=== PATIENT | male | born 1955 | race Caucasian/White ===

== ENCOUNTER → 2017-12-02 | Outpatient (CLI) | payer OTHER ==
--- NOTE | 2017-12-02 12:03 | Diagnostic Imaging Report ---
INDICATION: History of right foot injury. COMPARISON: None. FINDINGS: Three views of the right foot demonstrate no acute fracture or dislocation. There are no focal osseous lesions. There is no soft tissue swelling. Joint spaces are well maintained. No radiopaque foreign bodies are seen. IMPRESSION: No acute fractures or dislocations of the right foot. Dictated by: Dictated on workstation # [id number]
== END ==
LOC: RAD 11:21
PROVIDERS: ATTEND Family Medicine
DX: M79.671 Pain in right foot (principal)
CPT/HCPCS: 73630

== ENCOUNTER → 2019-09-28 | Outpatient (CLI) | payer MEDICARE, OTHER ==
[~2019-09-28] VITALS: Ht 173 cm; Wt 92.0 kg
[~2019-09-28] MED LIST: CATHETER FLUSH 10 ML SYR IV PRN
--- NOTE | 2019-09-29 09:56 | STRESS TEST ---
DATE OF SERVICE: RESTING AND POST EXERCISE TECHNETIUM-99M TETROFOSMIN AND SPECT CT IMAGING ORDERING PHYSICIAN: Dr. Cope. PRIMARY PHYSICIAN: Dr. Babb. CLINICAL DIAGNOSIS: Chest discomfort. Baseline images were carried out after injection of 10.42 mCi of technetium-99m Tetrofosmin. This was followed by exercise on a treadmill. Heart rate response to exercise was normal. Blood pressure response to exercise appeared hypertensive. The patient exhibited right bundle branch block and left anterior fascicular block at baseline and this did not change during the study. The test was stopped on account of fatigue. When the patient had attained target heart rate and had indicated that he would not be able to go for more than another minute, 30.4 mCi of technetium-99m Tetrofosmin were injected and the exercise was continued for another minute. Overall, he tolerated the procedure well. Test was stopped on account of fatigue. He attained 113% of maximum predicted heart rate and 8.3 METS of workload. Review of images at rest and following stress indicates a fixed inferior perfusion defect. Gated images show inferior hypokinesis. Left ventricular ejection fraction is calculated to be 62%. Left ventricular end diastolic volume is 71 mL. TID is absent (0.93). CONCLUSIONS: 1. This study is suggestive of an inferior infarction without ischemia. 2. Inferior hypokinesis. 3. Well preserved global left ventricular systolic function with a calculated ejection fraction of 62%. Job ID: [id number] DocumentID: [id number] Dictated Date: 09/29/2019 08:50:35 Superintendent Transmission Date: 09/29/2019 09:54:26 Dictated By: JOHANA COPE MD, MA, FACP, FACC,
== END ==
LOC: CARD 07:49
PROVIDERS: ATTEND Internal Medicine Cardiovascular Disease
DX: I11.9 Hypertensive heart disease without heart failure (principal); E11.9 Type 2 diabetes mellitus without complications; E78.5 Hyperlipidemia, unspecified; R94.31 Abnormal electrocardiogram [ECG] [EKG]; R07.89 Other chest pain
CPT/HCPCS: 78452; 93017; 93306

== ENCOUNTER 2020-01-04 07:38 | Day surgery (SDC) | payer MEDICARE, OTHER ==
[2020-01-04] VITALS (16 sets, daily range): BP systolic 115–191; BP diastolic 71–96
[~2020-01-04] VITALS: Ht 175 cm; Wt 96.2 kg
[2020-01-04] MEDS ORDERED: HEParin (CATH LAB) 2,000 ML IV ONE (07:42)
[2020-01-04] MEDS ORDERED: LIDOCAINE 1% INJ 20 ML 20 ML VIAL ONE (07:42)
[2020-01-04] MEDS ORDERED: NS IV 1000 ML 1,000 ML ONE (07:42)
--- OUTSIDE RECORDS SUMMARY | 2020-01-04 07:43 | XMS REPORT | Continuity of Care Document ---
Author Organization Unknown Address Unknown Phone Unavailable Allergies Active Description Code Type Severity Reaction Onset Reported/Identified Relationship to Patient Clinical Status Yes NO KNOWN DRUG ALLERGIES UNKNOWN NO KNOWN DRUG ALLERG Yes NO KNOWN DRUG ALLERGIES UNKNOWN UNKNOWN Yes No Known Drug Allergies [id number] Drug Allergy Unknown N/A 09/28/2019 Medications There is no data. Problems Date Dx Coded Attending Type Code Diagnosis Diagnosed By 12/02/2017 ELVER MARTINEZ 401.0 MALIGNANT ESSENTIAL HYPERTENSION 12/02/2017 MARTINEZELVER BHATTI I10 ESSENTIAL (PRIMARY) HYPERTENSION 12/02/2017 ELVER MARTINEZ 244.9 UNSPECIFIED HYPOTHYROIDISM 12/02/2017 ELVER MARTINEZ W 250.00 DIABETES MELLITUS WITHOUT MENTION OF COMPLICATION, TYPE II OR UNSPECIFIED TYPE, NOT STATED UNCONTROLLED 12/02/2017 ELVER MARTINEZ 401.0 MALIGNANT ESSENTIAL HYPERTENSION 12/02/2017 MARTINEZ, ELVER W E03.9 HYPOTHYROIDISM, UNSPECIFIED 12/02/2017 ELVER MARTINEZ W E11.9 TYPE 2 DIABETES MELLITUS WITHOUT COMPLICATIONS 12/02/2017 MARTINEZ, ELVER W I10 ESSENTIAL (PRIMARY) HYPERTENSION 12/02/2017 MARTINEZELVER BHATTI 244.9 UNSPECIFIED HYPOTHYROIDISM 12/02/2017 ELVER MARTINEZ W 250.00 DIABETES MELLITUS WITHOUT MENTION OF COMPLICATION, TYPE II OR UNSPECIFIED TYPE, NOT STATED UNCONTROLLED 12/02/2017 ELVER MARTINEZ 401.0 MALIGNANT ESSENTIAL HYPERTENSION 12/02/2017 ELVER MARTINEZ E03.9 HYPOTHYROIDISM, UNSPECIFIED 12/02/2017 ELVER MARTINEZ E11.9 TYPE 2 DIABETES MELLITUS WITHOUT COMPLICATIONS 12/02/2017 ELVER MARTINEZ I10 ESSENTIAL (PRIMARY) HYPERTENSION 12/02/2017 W 244.9 UNSP ECIFIED HYPOTHYROIDISM 12/02/2017 W 250.00 YOANA BETES MELLITUS WITHOUT MENTION OF COMPLICATION, TYPE II OR UNSPECIFIED TYPE, NOT STATED UNCONTROLLED 12/02/2017 W 401.0 DENI GNANT ESSENTIAL HYPERTENSION 12/02/2017 A 957.9 INJU RY TO NERVES, UNSPECIFIED SITE 12/02/2017 W E03.9 HYPO THYROIDISM, UNSPECIFIED 12/02/2017 W E11.9 TYPE 2 DIABETES MELLITUS WITHOUT COMPLICATIONS 12/02/2017 W I10 ESSENT IAL (PRIMARY) HYPERTENSION 12/02/2017 A T87.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 MARK OF AMPUTATION STUMP, UNSPECIFIED EXTREMITY 12/02/2017 ELVER MARTINEZ W 244.9 UNSPECIFIED HYPOTHYROIDISM 12/02/2017 ELVER MARTINEZ W 250.00 DIABETES MELLITUS WITHOUT MENTION OF COMPLICATION, TYPE II OR UNSPECIFIED TYPE, NOT STATED UNCONTROLLED 12/02/2017 ELVER MARTINEZ W 401.0 MALIGNANT ESSENTIAL HYPERTENSION 12/02/2017 ELVER MARTINEZ E03.9 HYPOTHYROIDISM, UNSPECIFIED 12/02/2017 ELVER MARTINEZ W E11.9 TYPE 2 DIABETES MELLITUS WITHOUT COMPLICATIONS 12/02/2017 ELVER MARTINEZ I10 ESSENTIAL (PRIMARY) HYPERTENSION 12/24/2017 ELVER MARTINEZ MD Ot M79.671 PAIN IN RIGHT FOOT 01/01/2018 A 250.80 YOANA BETES MELLITUS WITH OTHER SPECIFIED MANIFESTATIONS, TYPE II OR UNSPECIFIED TYPE, NOT STATED UNCONTROLLED 01/01/2018 W 272.4 OTHE R AND UNSPECIFIED HYPERLIPIDEMIA 01/01/2018 W 401.0 DENI GNANT ESSENTIAL HYPERTENSION 01/01/2018 A E11.65 TYP E 2 DIABETES MELLITUS WITH HYPERGLYCEMIA 01/01/2018 W E78.5 HYPE RLIPIDEMIA, UNSPECIFIED 01/01/2018 W I10 ESSENT IAL (PRIMARY) HYPERTENSION 03/11/2018 W 244.9 UNSP ECIFIED HYPOTHYROIDISM 03/11/2018 W 250.00 YOANA BETES MELLITUS WITHOUT MENTION OF COMPLICATION, TYPE II OR UNSPECIFIED TYPE, NOT STATED UNCONTROLLED 03/11/2018 W 272.4 OTHE R AND UNSPECIFIED HYPERLIPIDEMIA 03/11/2018 W 401.0 DENI GNANT ESSENTIAL HYPERTENSION 03/11/2018 W E03.9 HYPO THYROIDISM, UNSPECIFIED 03/11/2018 W E11.9 TYPE 2 DIABETES MELLITUS WITHOUT COMPLICATIONS 03/11/2018 W E78.5 HYPE RLIPIDEMIA, UNSPECIFIED 03/11/2018 W I10 ESSENT IAL (PRIMARY) HYPERTENSION 06/05/2018 ELVER MARTINEZ MD Ot M79.671 PAIN IN RIGHT FOOT 06/06/2018 ELVER MARTINEZ MD L Ot M79.671 PAIN IN RIGHT FOOT 08/31/2018 W 682.9 CELL ULITIS AND ABSCESS OF UNSPECIFIED SITES 08/31/2018 W 782.1 RASH AND OTHER NONSPECIFIC SKIN ERUPTION 08/31/2018 W L03.90 VANIA LULITIS, UNSPECIFIED 08/31/2018 W R21 RASH A ND OTHER NONSPECIFIC SKIN ERUPTION 09/16/2018 ELVER MARTINEZ W 250.00 DIABETES MELLITUS WITHOUT MENTION OF COMPLICATION, TYPE II OR UNSPECIFIED TYPE, NOT STATED UNCONTROLLED 09/16/2018 ELVER MARTINEZ W E11.9 TYPE 2 DIABETES MELLITUS WITHOUT COMPLICATIONS 09/16/2018 W 250.00 YOANA BETES MELLITUS WITHOUT MENTION OF COMPLICATION, TYPE II OR UNSPECIFIED TYPE, NOT STATED UNCONTROLLED 09/16/2018 W 272.4 OTHE R AND UNSPECIFIED HYPERLIPIDEMIA 09/16/2018 W 401.0 DENI GNANT ESSENTIAL HYPERTENSION 09/16/2018 W E11.9 TYPE 2 DIABETES MELLITUS WITHOUT COMPLICATIONS 09/16/2018 W E78.5 HYPE RLIPIDEMIA, UNSPECIFIED 09/16/2018 W I10 ESSENT IAL (PRIMARY) HYPERTENSION 09/16/2018 ELVER MARTINEZ W 250.00 DIABETES MELLITUS WITHOUT MENTION OF COMPLICATION, TYPE II OR UNSPECIFIED TYPE, NOT STATED UNCONTROLLED 09/16/2018 ELVER MARTINEZ W E11.9 TYPE 2 DIABETES MELLITUS WITHOUT COMPLICATIONS 03/17/2019 ELVER MARTINEZ W 250.00 DIABETES MELLITUS WITHOUT MENTION OF COMPLICATION, TYPE II OR UNSPECIFIED TYPE, NOT STATED UNCONTROLLED 03/17/2019 ELVER MARTINEZ E11.9 TYPE 2 DIABETES MELLITUS WITHOUT COMPLICATIONS 03/17/2019 ELVER MARTINEZ W 250.00 DIABETES MELLITUS WITHOUT MENTION OF COMPLICATION, TYPE II OR UNSPECIFIED TYPE, NOT STATED UNCONTROLLED 03/17/2019 ELVER MARTINEZ E11.9 TYPE 2 DIABETES MELLITUS WITHOUT COMPLICATIONS 03/17/2019 ELVER MARTINEZ W 250.00 DIABETES MELLITUS WITHOUT MENTION OF COMPLICATION, TYPE II OR UNSPECIFIED TYPE, NOT STATED UNCONTROLLED 03/17/2019 ELVER MARTINEZ W 401.0 MALIGNANT ESSENTIAL HYPERTENSION 03/17/2019 ELVER MARTINEZ W E11.9 TYPE 2 DIABETES MELLITUS WITHOUT COMPLICATIONS 03/17/2019 ELVER MARTINEZ W I10 ESSENTIAL (PRIMARY) HYPERTENSION 03/17/2019 ELVER MARTINEZ W 250.00 DIABETES MELLITUS WITHOUT MENTION OF COMPLICATION, TYPE II OR UNSPECIFIED TYPE, NOT STATED UNCONTROLLED 03/17/2019 ELVER MARTINEZ W 401.0 MALIGNANT ESSENTIAL HYPERTENSION 03/17/2019 ELVER MARTINEZ W E11.9 TYPE 2 DIABETES MELLITUS WITHOUT COMPLICATIONS 03/17/2019 MICHELLE, ELVER W I10 ESSENTIAL (PRIMARY) HYPERTENSION 03/17/2019 KIKI MARTINEZHEL W 250.00 DIABETES MELLITUS WITHOUT MENTION OF COMPLICATION, TYPE II OR UNSPECIFIED TYPE, NOT STATED UNCONTROLLED 03/17/2019 MARTINEZ ELVER W 272.4 OTHER AND UNSPECIFIED HYPERLIPIDEMIA 03/17/2019 ELVER MARTINEZ W 401.0 MALIGNANT ESSENTIAL HYPERTENSION 03/17/2019 ELVER MARTINEZ W E11.9 TYPE 2 DIABETES MELLITUS WITHOUT COMPLICATIONS 03/17/2019 ELVER MARTINEZ W E78.5 HYPERLIPIDEMIA, UNSPECIFIED 03/17/2019 KIKI MARTINEZHEL W I10 ESSENTIAL (PRIMARY) HYPERTENSION 03/17/2019 KIKI MARTINEZHEL W 250.00 DIABETES MELLITUS WITHOUT MENTION OF COMPLICATION, TYPE II OR UNSPECIFIED TYPE, NOT STATED UNCONTROLLED 03/17/2019 MARTINEZ ELVER W 272.4 OTHER AND UNSPECIFIED HYPERLIPIDEMIA 03/17/2019 ELVER MARTINEZ W 401.0 MALIGNANT ESSENTIAL HYPERTENSION 03/17/2019 ELVER MARTINEZ W E11.9 TYPE 2 DIABETES MELLITUS WITHOUT COMPLICATIONS 03/17/2019 ELVER MARTINEZ W E78.5 HYPERLIPIDEMIA, UNSPECIFIED 03/17/2019 KIKI MARTINEZHEL W I10 ESSENTIAL (PRIMARY) HYPERTENSION 03/17/2019 KIKI MARTINEZHEL W 250.00 DIABETES MELLITUS WITHOUT MENTION OF COMPLICATION, TYPE II OR UNSPECIFIED TYPE, NOT STATED UNCONTROLLED 03/17/2019 MARTINEZ ELVER W 272.4 OTHER AND UNSPECIFIED HYPERLIPIDEMIA 03/17/2019 ELVER MARTINEZ W 401.0 MALIGNANT ESSENTIAL HYPERTENSION 03/17/2019 KIKI MARTINEZHEL W 698.2 PRURIGO 03/17/2019 ELVER MARTINEZ W E11.9 TYPE 2 DIABETES MELLITUS WITHOUT COMPLICATIONS 03/17/2019 KIKI MARTINEZHEL W E78.5 HYPERLIPIDEMIA, UNSPECIFIED 03/17/2019 KIKI MARTINEZHEL W I10 ESSENTIAL (PRIMARY) HYPERTENSION 03/17/2019 ELVER MARTINEZ W L28.2 OTHER PRURIGO 03/17/2019 KIKI MARTINEZHEL W 250.00 DIABETES MELLITUS WITHOUT MENTION OF COMPLICATION, TYPE II OR UNSPECIFIED TYPE, NOT STATED UNCONTROLLED 03/17/2019 ELVER MARTINEZ W 272.4 OTHER AND UNSPECIFIED HYPERLIPIDEMIA 03/17/2019 ELVER MARTINEZ W 401.0 MALIGNANT ESSENTIAL HYPERTENSION 03/17/2019 KIKI MARTINEZHEL W 698.2 PRURIGO 03/17/2019 MICHELLE, ELVER W E11.9 TYPE 2 DIABETES MELLITUS WITHOUT COMPLICATIONS 03/17/2019 ELVER MARTINEZ W E78.5 HYPERLIPIDEMIA, UNSPECIFIED 03/17/2019 ELVER MARTINEZ W I10 ESSENTIAL (PRIMARY) HYPERTENSION 03/17/2019 ELVER MARTINEZ W L28.2 OTHER PRURIGO 03/17/2019 KIKI MARTINEZHEL W 250.00 DIABETES MELLITUS WITHOUT MENTION OF COMPLICATION, TYPE II OR UNSPECIFIED TYPE, NOT STATED UNCONTROLLED 03/17/2019 ELVER MARTINEZ W 272.4 OTHER AND UNSPECIFIED HYPERLIPIDEMIA 03/17/2019 ELVER MARTINEZ W 401.0 MALIGNANT ESSENTIAL HYPERTENSION 03/17/2019 ELVER MARTINEZ W 698.2 PRURIGO 03/17/2019 ELVER MARTINEZ W E11.9 TYPE 2 DIABETES MELLITUS WITHOUT COMPLICATIONS 03/17/2019 ELVER MARTINEZ W E78.5 HYPERLIPIDEMIA, UNSPECIFIED 03/17/2019 MARTINEZKIKI BHATTIHEL W I10 ESSENTIAL (PRIMARY) HYPERTENSION 03/17/2019 ELVER MARTINEZ W L28.2 OTHER PRURIGO 04/12/2019 Mariel Mantilla 682.9 CELLULITIS AND ABSCESS OF UNSPECIFIED SITES 04/12/2019 Mariel Mantilla W L03.90 CELLULITIS, UNSPECIFIED 04/12/2019 Mariel Mantilla 682.9 CELLULITIS AND ABSCESS OF UNSPECIFIED SITES 04/12/2019 Mariel Mantilla W L03.90 CELLULITIS, UNSPECIFIED 04/12/2019 Mariel Mantilla W 682.9 CELLULITIS AND ABSCESS OF UNSPECIFIED SITES 04/12/2019 Mariel Mantilla W L03.90 CELLULITIS, UNSPECIFIED 04/12/2019 Mariel Mantilla 682.9 CELLULITIS AND ABSCESS OF UNSPECIFIED SITES 04/12/2019 Mariel Mantilla L03.90 CELLULITIS, UNSPECIFIED 04/28/2019 ELVER MARTINEZ W 682.6 CELLULITIS AND ABSCESS OF LEG, EXCEPT FOOT 04/28/2019 ELVER MARTINEZ W L03.116 CELLULITIS OF LEFT LOWER LIMB 04/28/2019 MARTINEZELVER BHATTI W 682.6 CELLULITIS AND ABSCESS OF LEG, EXCEPT FOOT 04/28/2019 ELVER MARTINEZ W L03.116 CELLULITIS OF LEFT LOWER LIMB 04/28/2019 MARTINEZELVER BHATTI W 682.6 CELLULITIS AND ABSCESS OF LEG, EXCEPT FOOT 04/28/2019 ELVER MARTINEZ W L03.116 CELLULITIS OF LEFT LOWER LIMB 05/16/2019 Edgar Bourne L29.9 PRURITUS, UNSPECIFIED 08/09/2019 Edgar Bourne G47.9 SLEEP DISORDER, UNSPECIFIED 08/09/2019 Edgar Bourne 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 08/09/2019 Edgar Bourne M79.672 PAIN IN LEFT FOOT 08/09/2019 Edgar Bourne Z01.01 ENCOUNTER FOR EXAM OF EYES AND VISION W ABNORMAL FINDINGS 08/09/2019 Edgar Bourne Z01.89 ENCOUNTER FOR OTHER SPECIFIED SPECIAL EXAMINATIONS 09/06/2019 Edgar Bourne E03.9 HYPOTHYROIDISM, UNSPECIFIED 09/06/2019 Edgar Bourne E11.65 TYPE 2 DIABETES MELLITUS WITH HYPERGLYCEMIA 09/06/2019 Edgar Bourne W E11.9 TYPE 2 DIABETES MELLITUS WITHOUT COMPLICATIONS 09/06/2019 Edgar Bourne E78.5 HYPERLIPIDEMIA, UNSPECIFIED 09/06/2019 Edgar Bourne I10 ESSENTIAL (PRIMARY) HYP 09/06/2019 Edgar Bourne L03.116 CELLULITIS OF LEFT LOWER LIMB 09/06/2019 Edgar Bourne L03.90 CELLULITIS, UNSPECIFIED 09/06/2019 Edgar Bourne L28.2 OTHER PRURIGO 09/06/2019 Edgar Bourne R21 RASH AND OTHER NONSPECIFIC SKIN ERUPTION 09/06/2019 Edgar Bourne 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, UNSPECIFIED EXTREMITY 09/28/2019 MICHELLE NICHOLSON, ELVER Forbes Ot M79.671 PAIN IN RIGHT FOOT 09/28/2019 ELVER MARTINEZ MD, Ot M79.671 PAIN IN RIGHT FOOT 09/30/2019 JACE NICHOLSON FACC, ALI FACP CCDS Ot E11.9 TYPE 2 DIABETES MELLITUS WITHOUT COMPLIC 09/30/2019 [facility], ALI FACP CCDS Ot E78.5 HYPERLIPIDEMIA, UNSPECIFIED 09/30/2019 [facility], ALI FACP CCDS Ot I11.9 HYPERTENSIVE HEART DISEASE WITHOUT HEART 09/30/2019 [facility], ALI FACP CCDS Ot R07.89 OTHER CHEST PAIN 09/30/2019 [facility], ALI FACP CCDS Ot R94.31 ABNORMAL ELECTROCARDIOGRAM [ECG] [EKG] 10/04/2019 [facility], ALI FACP CCDS Ot E11.9 TYPE 2 DIABETES MELLITUS WITHOUT COMPLIC 10/04/2019 [facility], ALI FACP CCDS Ot E78.5 HYPERLIPIDEMIA, UNSPECIFIED 10/04/2019 [facility], ALI FACP CCDS Ot I11.9 HYPERTENSIVE HEART DISEASE WITHOUT HEART 10/04/2019 [facility], ALI FACP CCDS Ot R07.89 OTHER CHEST PAIN 10/04/2019 [facility], ALI FACP CCDS Ot R94.31 ABNORMAL ELECTROCARDIOGRAM [ECG] [EKG] 11/18/2019 [facility], ALI FACP CCDS Ot E11.9 TYPE 2 DIABETES MELLITUS WITHOUT COMPLIC 11/18/2019 [facility], ALI FACP CCDS Ot E78.5 HYPERLIPIDEMIA, UNSPECIFIED 11/18/2019 [facility], ALI FACP CCDS Ot I11.9 HYPERTENSIVE HEART DISEASE WITHOUT HEART 11/18/2019 [facility], ALI FACP CCDS Ot R07.89 OTHER CHEST PAIN 11/18/2019 [facility], ALI FACP CCDS Ot R94.31 ABNORMAL ELECTROCARDIOGRAM [ECG] [EKG] Procedures There is no data. Results Test Result Range PSA Yearly Screen - 12/02/17 10:45 PSA TOTAL 3.3 ng/mL 0.0-4.0 Thyroid Stimulating Hormone - 12/02/17 1 0:45 TSH 1.95 mIU/mL 0.32-5.00 Microalbumin - 09/16/18 08:55 Microalb 9.0 mg/L 0.0-20.0 Surgical Pathology - 05/19/19 14:05 Surg Path Sent to [facility] Pathology Cardiac Panel - 09/06/19 18:27 CK 212 U/L 26-174 CK-MB 4.0 ng/ml 0.0-9.2 Myoglobin 92.8 ng/ml 1.6-154.9 Troponin <0.020 ng/mL 0.0-0.4 Thyroid Stimulating Hormone - 12/30/19 0 8:20 TSH 3.09 mIU/mL 0.32-5.00 Encounters ACCT No. Visit Date/Time Discharge Status Pt. Type Provider Facility Loc./Unit Complaint [id number] 12/30/2019 09:52:00 12/30/2019 23:59 :00 DIS Outpatient ELVER MARTINEZ [id number] 12/30/2019 08:41:00 12/30/2019 23:59 :00 DIS Outpatient ELVER MARTINEZ [id number] 10/05/2019 14:37:00 10/05/2019 23:59 :00 DIS Outpatient ELVER MARTINEZ [id number] 09/07/2019 18:06:00 09/07/2019 23:59 :00 DIS Outpatient ELVER MARTINEZ [id number] 09/06/2019 18:12:00 09/06/2019 20:02 :[id number] 10:35:00 09/03/2019 23:59 :00 DIS Outpatient Mariel Mantilla [id number] 08/10/2019 12:35:00 08/10/2019 23:59 :00 DIS Outpatient ELVER MARTINEZ [id number] 05/19/2019 13:50:00 05/19/2019 23:59: 00 DIS Outpatient ELVER MARTINEZ [id number] 05/19/2019 13:15:00 05/19/2019 23:59: 00 DIS Outpatient ELVER MARTINEZ [id number] 05/17/2019 16:21:00 05/17/2019 23:59: 00 DIS Outpatient ELVER MARTINEZ [id number] 05/12/2019 08:11:00 05/12/2019 23:59: 00 DIS Outpatient ZOE PINEDA [id number] 04/28/2019 15:00:00 04/28/2019 23:59: 00 DIS Outpatient ELVER MARTINEZ [id number] 04/12/2019 15:10:00 04/12/2019 23:59: 00 DIS Outpatient Mariel Mantilla [id number] 03/17/2019 17:00:00 03/17/2019 23:59: 00 DIS Outpatient ELVER MARTINEZ [id number] 09/16/2018 11:04:00 09/16/2018 23:59: 00 DIS Outpatient ELVER MARTINEZ [id number] 12/11/2017 17:13:00 12/11/2017 23:59: 00 DIS Outpatient ZOE PINEDA [id number] 12/02/2017 13:35:00 12/02/2017 23:59: 00 DIS Outpatient ELVER MARTINEZ [id number] 09/16/2018 08:30:00 Document Registration [id number] 08/31/2018 13:00:00 Document Registration [id number] 03/11/2018 08:20:00 Document Registration [id number] 01/01/2018 14:30:00 Document Registration [id number] 12/02/2017 10:40:00 Document Registration [id number] 09/28/2019 07:49:00 020 23:59:59 CLS Outpatient JACE NICHOLSON FACC, JOHANA ZULETA CC DS [facility] CARD CHEST DISCOMFORT,HT,ECG ABNORMAL [id number] 12/02/2017 11:21:00 018 23:59:59 CLS Outpatient ELVER MARTINEZ MD [facility] RAD PAIN DORSUM R FOOT [id number] 01/04/2020 07:38:[address] Outpatient JACE NICHOLSON FACC, JOHANA ZULETA CCDS [facility] CATH HTN,HYPERLIPIDEMIA,ANGINA,SOB,FATIGUE,ABN STRESS [id number] 09/16/2018 16:00:00 09/16/2018 23:59: 59 [facility]
[2020-01-04] MEDS ORDERED: NS IV 1000 ML 1,000 ML IV SCH (07:45)
[2020-01-04 08:10] LABS: HEMOGLOBIN 13.6 G/DL (13.3-17.7); MEAN PLATELET VOLUME 10.4 FL (7.4-10.4); RED CELL DISTRIBUTION WIDTH 14.2 % (10.0-14.5); WHITE BLOOD COUNT 8.5 10^3/uL (4.3-11.0)
[2020-01-04] MEDS ORDERED: CETI10TA17 PO (08:11)
[2020-01-04] MEDS ORDERED: SITA100T12 PO (08:11)
[2020-01-04] MEDS ORDERED: GLIM4TAB5 PO (08:11)
[2020-01-04] MEDS ORDERED: ASPI-808 PO (08:11)
[2020-01-04] MEDS ORDERED: LORA-714 PO (08:11)
[2020-01-04] MEDS ORDERED: NFMET1000 PO (08:11)
[2020-01-04] MEDS ORDERED: PRAV20TA PO (08:11)
[2020-01-04] MEDS ORDERED: LISI1TAB26 PO (08:11)
[2020-01-04] MEDS ORDERED: LEVO88TA54 PO (08:11)
[2020-01-04] MEDS ORDERED: AMLO10TA7 PO (08:11)
[2020-01-04 08:28] LABS: INR 0.9 (0.8-1.4); PROTHROMBIN TIME PATIENT 12.3 SEC (12.2-14.7)
[2020-01-04 08:33] LABS: ALANINE AMINOTRANSFERASE 30 U/L (0-55); ALBUMIN 4.7 GM/DL (3.2-4.5); ALKALINE PHOSPHATASE 65 U/L (40-136); BILIRUBIN,TOTAL 1.1 MG/DL (0.1-1.0); BUN/CREATININE RATIO 16; CALCIUM 10.3 MG/DL (8.5-10.1); CARBON DIOXIDE 28 MMOL/L (21-32); CHLORIDE 100 MMOL/L (98-107); CHOLESTEROL 189 MG/DL (< 200); CREATININE SERUM 0.83 MG/DL (0.60-1.30); GFR ESTIMATED > 60; GLUCOSE 156 MG/DL (70-105); HDL CHOLESTEROL 51 MG/DL (40-60); POTASSIUM 3.1 MMOL/L (3.6-5.0); SODIUM 141 MMOL/L (135-145); TOTAL PROTEIN 8.1 GM/DL (6.4-8.2); TRIGLYCERIDES 101 MG/DL (<150); VLDL CHOLESTEROL 20 MG/DL (5-40)
[2020-01-04] MEDS ORDERED: fentaNYL INJECTION 100 MCG/2 ML AMP ONE (10:25)
[2020-01-04] MEDS ORDERED: MIDAZOLAM 5 MG/5 ML (VERSED) VIAL ONE (10:25)
--- NOTE | 2020-01-04 10:49 | Cardiac Procedure Note-CS/ASA ---
Pre-Procedure Note Pre-Op Procedure Note H&P Reviewed The H&P was reviewed, patient examined and no changes noted. Date H&P Reviewed: Jan 04, 2020 Time H&P Reviewed: 10:49 Conscious Sedation Pre-Proced Time 10:49 ASA Score 3 For ASA 3 and 4: Consider anesthesia and medical clearance. Also, for patients with a history of failed moderate sedation consider anesthesia. Airway Lungs Heart ASA score ASA 1: a normal healthy patient ASA 2: a patient with a mild systemic disease (mid diabetes, controlled hypertension, obesity ASA 3: a patient with a severe systemic disease that limits activity (angina, COPD, prior Myocardial infarction) ASA 4: a patient with an incapacitating disease that is a constant threat to life (CHF, renal failure) ASA 5: a moribund patient not expected to survive 24 hrs. (ruptured aneurysm) ASA 6: a declared brain- patient whose organs are being harvested. For emergent operations, add the letter E after the classification Mallampati Classification Grade 3 Sedation Plan Analgesia, Amnesia, Plan communicated to team members, Discussed options with patient/fam, Discussed risks with patient/fam The patient is an appropriate candidate to undergo the planned procedure, sedation, and anesthesia. The patient immediately re-assessed prior to indication. JOHANA MCCORMICK MD FACP FAC CCDS Jan 04, 2020 10:49
[2020-01-04] MEDS ORDERED: HEParin 1000 UNIT/ML (10ML VIAL) FOR BOLUS ONE (11:12)
[2020-01-04] MEDS ORDERED: EPTIFIBATIDE BOLUS 20 ML IV ONE (11:12)
[2020-01-04] MEDS ORDERED: NITRO DRIP 25000 MCG/D5W 0 ML IV ONE (11:19)
[2020-01-04] MEDS ORDERED: ASPIRIN 81 MG CHEW (CHILDREN'S ASA) ONE (11:37)
[2020-01-04] MEDS ORDERED: CLOPIDOGREL 300 MG (PLAVIX) TABLET PO ONE (11:37)
--- NOTE | 2020-01-04 11:45 | NUR ---
Pt arrived to ICU room 7 at this time accompanied by slabber light staff. Right groin site, sheath intact. VSS at this time. Will continue to monitor PTT to remove sheath per protocol.
[2020-01-04] MEDS ORDERED: MAGNESIUM 1 GM/100 ML IVPB 100 ML IV ONE ×2 (12:00→15:45)
[2020-01-04] MEDS ORDERED: KCL 20 MEQ TAB (K-DUR) PO ONE (12:00)
[2020-01-04] MEDS ORDERED: ACETAMINOPHEN 325 MG TABLET PO PRN (12:00)
[2020-01-04] MEDS ORDERED: PATIENT MAY USE OWN MEDS, ALL PO SCH (12:00)
--- NOTE | 2020-01-04 12:14 | CARDIAC CATHETERIZATION ---
DATE OF SERVICE: 01/04/2020 CARDIAC CATHETERIZATION AND CORONARY INTERVENTION REPORT INDICATIONS FOR PROCEDURE: The patient is a 64-year-old man, who has coronary artery disease risk factors and has had chest discomfort. Myocardial perfusion imaging study indicated an inferior perfusion defect. Although the perfusion defect appeared predominantly fixed, given the symptoms, we proceeded with cardiac catheterization after having obtained an informed consent for cardiac catheterization and ad hoc coronary intervention, if needed. DESCRIPTION OF PROCEDURE: He was brought to the cardiac catheterization laboratory in a fasting state. Right groin was prepared and draped in the usual sterile fashion. Lidocaine 1% was used for local anesthesia. Modified Seldinger technique was used to advance a 5-Israeli sheath in the right femoral artery, 5-Israeli JL5 catheter was used for left coronary angiography and 5-Israeli JR4 catheter was used for right coronary angiography. We used a 5-Israeli pigtail catheter to carry out aortic root angiography. Aortic root angiography was performed because his aortic root appeared enlarged and there appeared to be calcification of the aortic valve leaflets. We made an attempt to cross into the left ventricle. This was proven difficult and we did not make further attempts. PERCUTANEOUS INTERVENTION TO THE RIGHT CORONARY ARTERY: Following completion of the diagnostic procedure, we carried out intervention to the right coronary that was exhibiting 70% to 80% proximal stenosis. We exchanged the sheath over a wire for a 6-Israeli sheath. We gave 6000 units of intravenous heparin and double bolus of Integrilin. We used a 6-Israeli JR4 guide catheter to engage the right coronary artery. We advanced a BMW wire across the lesion. We advanced Alpine Xience 3.5 x 20 mm stent to the lesion. Stent was deployed at 14 atmospheres. Subsequent angiography revealed 0% residual stenosis and flow throughout the vessel was normal. He tolerated the procedure well. Angioplasty equipment was removed. Sheath was sutured in place. He was transferred to the floor for manual sheath removal. CORONARY ANGIOGRAPHY: Left main coronary artery does not have significant disease. Left anterior descending and left circumflex arteries have approximately 30% proximal stenoses. Right coronary artery is large and dominant and had 70% to 80% proximal stenosis that was successfully stented with Alpine Xience 3.5 x 23 mm stent. Subsequent angiography revealed 0% residual stenosis. AORTIC ROOT ANGIOGRAPHY: Aortic root angiography indicated mild to moderate enlargement of the aortic root. Aortic valve leaflets show mild to moderate calcification. Aortic valve leaflet is diminished, but fair. CONCLUSIONS: 1. Coronary artery disease primarily consisting of 70% to 80% proximal stenosis of a dominant right coronary, to which successful stenting was carried out with Alpine Xience 3.5 x 23 mm stent. The rest of the coronary vessels have relatively mild disease. 2. Mild to moderate enlargement of the aortic root and aortic valve sclerosis and calcification and somewhat diminished leaflet excursion. DISCUSSION AND RECOMMENDATIONS: Dual antiplatelet therapy is being added to the regimen. He is being hospitalized for overnight observation. Risk factor modification has been reviewed. Job ID: [id number] DocumentID: [id number] Dictated Date: 01/04/2020 11:39:24 Commodities Manager Date: 01/04/2020 12:14:17 Dictated By: JOHANA MCCORMICK MD, MA, FACP, FACC,
[2020-01-04] MEDS: inSUlin ASPART (NovoLOG) 1 UNIT/0.01 ML (CHARGE PER UNIT) SC SCH ×2 (15:16→19:49)
[2020-01-04] MEDS ORDERED: KCL 20 MEQ TAB (K-DUR) PO NR (15:45)
[2020-01-04] MEDS: NS IV 1000 ML 1,000 ML IV SCH ×2 (16:19→22:39)
[2020-01-04] MEDS ORDERED: NON-FORMULARY MEDICATION 1 EA EA (Cetirizine HCl 10 MG) PO SCH (21:00)
[2020-01-04] MEDS ORDERED: PRAVASTATIN SODIUM 20 MG PO SCH (21:00)
[2020-01-04] MEDS ORDERED: PRAVASTATIN 20 MG (PRAVACHOL) TAB NON-FORMULARY PO SCH (21:00)
[2020-01-04] MEDS ORDERED: LORATADINE (CLARITIN) 10 MG TAB PO SCH (21:00)
[2020-01-04] MEDS ORDERED: ceTIRizine 10 MG (ZyrTEC) TAB NON-FORMULARY PO SCH (21:00)
[2020-01-05] VITALS (10 sets, daily range): BP systolic 116–163; BP diastolic 66–113
[2020-01-05 02:55] LABS: HEMOGLOBIN 13.6 G/DL (13.3-17.7); MEAN PLATELET VOLUME 10.7 FL (7.4-10.4); RED CELL DISTRIBUTION WIDTH 14.5 % (10.0-14.5); WHITE BLOOD COUNT 8.6 10^3/uL (4.3-11.0)
[2020-01-05 03:11] LABS: CHLORIDE 105 MMOL/L (98-107); POTASSIUM 3.5 MMOL/L (3.6-5.0); SODIUM 141 MMOL/L (135-145)
[2020-01-05 03:12] LABS: GLUCOSE 141 MG/DL (70-105)
[2020-01-05 03:14] LABS: CARBON DIOXIDE 23 MMOL/L (21-32)
[2020-01-05 03:16] LABS: CREATININE SERUM 0.79 MG/DL (0.60-1.30); GFR ESTIMATED > 60
[2020-01-05 03:17] LABS: BUN/CREATININE RATIO 14
[2020-01-05] MEDS: inSUlin ASPART (NovoLOG) 1 UNIT/0.01 ML (CHARGE PER UNIT) SC SCH ×2 (04:08→10:09)
[2020-01-05] MEDS ORDERED: LEVOTHYROXINE 88 MCG (LEVOTHORID) TAB PO SCH (06:30)
[2020-01-05] MEDS ORDERED: LINAGLIPTIN (TRADJENTA) 5 MG TABLET PO SCH (07:00)
[2020-01-05] MEDS ORDERED: GLIMEPIRIDE 4 MG (AMARYL) TAB PO SCH (07:00)
[2020-01-05] MEDS: NS IV 1000 ML 1,000 ML IV SCH (07:58)
[2020-01-05] MEDS ORDERED: ASPIRIN 325 MG (5 GR) TABLET PO SCH (08:00)
--- NOTE | 2020-01-05 08:10 | Progress Note - Cardiology ---
Cardiology SOAP Progress Note Subjective: Lying in bed. Denies any c/o CP, palpitations, syncope, near syncope or dyspnea. Spouse at the bedside. He denies any c/o right groin discomfort. Objective: I&O/Vital Signs 01/04/20 01/04/20 01/04/20 01/05/20 22:00 23:00 23:59 00:00 Temp 36.5 Pulse 69 59 Resp 17 B/P (MAP) 139/90 (106) 115/71 (86) Pulse Ox 96 94 O2 Delivery Room Air Room Air Room Air 01/05/20 01/05/20 01/05/20 01/05/20 00:00 01:00 01:00 02:00 Pulse 56 61 61 62 Resp 10 20 19 B/P (MAP) 121/66 (84) 133/72 (92) 133/79 (97) Pulse Ox 95 95 94 O2 Delivery Room Air Room Air Room Air 01/05/20 01/05/20 01/05/20 01/05/20 03:15 03:56 04:00 04:00 Temp 36.5 Pulse 65 61 Resp 21 18 B/P (MAP) 141/80 (100) 116/70 (85) Pulse Ox 95 96 O2 Delivery Room Air Room Air Room Air 01/05/20 01/05/20 01/05/20 05:00 06:00 07:20 Temp 36.4 Pulse 63 66 Resp 25 25 B/P (MAP) 144/75 (98) 153/76 (101) Pulse Ox 96 97 O2 Delivery Room Air Room Air 01/05/20 00:00 Intake Total 300 ml Output Total 1150 ml Balance -850 ml Side: right Groin site without hematoma: Yes Condition: DP/PT pulses palpable, extremity w/d/p Bruising: mild bruising Constitutional: AAO x 3 Respiratory: No accessory muscle use, No respiratory distress; chest expansion is symmetric, chest is bilaterally symmetric Cardiovascular: regular rate-rhythm; No JVD; S1 and S2 Gastrointestional: No tender; soft, round, audible bowel sounds Extremities: no lower extremity edema bilateral Neurologic/Psychiatric: grossly intact Skin: No rash on exposed areas, No ulcerations on exposed areas Results/Procedures: Labs Laboratory Tests 01/04/20 12:52: Activated Partial Thromboplast Time 80H 01/04/20 15:09: Activated Partial Thromboplast Time 27 01/04/20 19:39: Glucometer 196H 01/05/20 02:16: White Blood Count 8.6, Red Blood Count 4.58, Hemoglobin 13.6, Hematocrit 41, Mean Corpuscular Volume 89, Mean Corpuscular Hemoglobin 30, Mean Corpuscular Hemoglobin Concent 33, Red Cell Distribution Width 14.5, Platelet Count 256, Mean Platelet Volume 10.7H, Sodium Level 141, Potassium Level 3.5L, Chloride Level 105, Carbon Dioxide Level 23, Anion Gap 13, Blood Urea Nitrogen 11, Creatinine 0.79, Estimat Glomerular Filtration Rate > 60, BUN/Creatinine Ratio 14, Glucose Level 141H, Calcium Level 9.0, Magnesium Level 2.0 Microbiology 01/04/20 MRSA Screen - Final, Complete MRSA not isolated Procedures S/P cardiac cath of 01-04-2020 with successful intervention. Please refer to cardiac cath report of of the same date for details. A/P: Assessment: CAD - Cardiac cath of January 04, 2020: Coronary artery disease primarily consisting of 70% to 80% proximal stenosis of a dominant right coronary, to which successful stenting was carried out with Alpine Xience 3.5 x 23 mm stent. The rest of the coronary vessels have relatively mild disease. Mild to moderate enlargement of the aortic root and aortic valve sclerosis and calcification and somewhat diminished leaflet excursion. MPI of September 28, 2019 is suggestive of an inferior infarction without ischemia. Inferior hypokinesis. LVEF 62% (subsequent cardiac cath as noted above) Echocardiogram of September 28, 2019 showed LVEF 50-55%. Aortic valve thickening consistent with sclerosis. Mild to mod stenosis. RVSP approx 29 mmHg Abnormal ECG. ECG of 09/06/19 shows NSR with RBBB and LAFB Hypertension Hyperlipidemia DM II Overweight Skin rash in Jul 2019, treated transiently with methotrexate Fam h/o premature CAD (brother had [place] in his early 60s; sister had [place] in 20s or 30s) Hypokalemia Plan: S/P successful coronary intervention on 01-04-2020 Continue current medication regimen including statin, ASA, Plavix and BB Discussed coronary status with he and his spouse Discussed activity restrictions with he and his spouse OK to discharge home today with out pt f/u next week GUS MULLER Jan 05, 2020 08:10
[2020-01-05] MEDS ORDERED: LISINOPRIL/HCTZ 20/25 MG TABLET PO SCH (09:00)
[2020-01-05] MEDS ORDERED: CLOPIDOGREL 75 MG (PLAVIX) TABLET PO SCH (09:00)
[2020-01-05] MEDS ORDERED: HYDROCHLOROTHIAZIDE 25 MG (HCTZ) TAB PO SCH (09:00)
[2020-01-05] MEDS ORDERED: NON-FORMULARY MEDICATION 1 EA EA (Sitagliptin Phosphate (Januvia) 100 MG) PO SCH (09:00)
[2020-01-05] MEDS ORDERED: JANUVIA 100 MG PO SCH (09:00)
[2020-01-05] MEDS ORDERED: LORATADINE (CLARITIN) 10 MG TAB PO SCH (09:00)
[2020-01-05] MEDS ORDERED: NON-FORMULARY MEDICATION 1 EA EA (Lisinopril/Hydrochlorothiazide (Lisinopril-Hctz 20-25 mg PO SCH (09:00)
[2020-01-05] MEDS ORDERED: lisINopril 20 MG (PRINIVIL) TABLET PO SCH (09:00)
[2020-01-05] MEDS ORDERED: amLODIPine 10 MG (NORVASC) TAB PO SCH (09:00)
[2020-01-05] MEDS ORDERED: CLOP75TA28 PO (09:27)
--- NOTE | 2020-01-05 09:29 | Discharge Inst-Cardiology ---
Discharge Inst-Cardiac Discharge Medications New Medications: Clopidogrel Bisulfate (Clopidogrel) 75 Mg Tablet 75 MG PO DAILY, #20 TAB 5 Refills Continued Medications: Amlodipine Besylate (Amlodipine Besylate) 10 Mg Tablet 10 MG PO DAILY, TAB Cetirizine HCl (Cetirizine HCl) 10 Mg Tablet 10 MG PO HS, TAB Glimepiride (Glimepiride) 4 Mg Tablet 4 MG PO DAILY, TAB Levothyroxine Sodium (Levothyroxine Sodium) 88 Mcg Tablet 88 MCG PO DAILY, TAB Lisinopril/Hydrochlorothiazide (Lisinopril-Hctz 20-25 mg Tab) 1 Each Tablet 1 EACH PO DAILY, TAB Loratadine (Loratadine) 10 Mg Tab.rapdis 10 MG PO DAILY, TAB Pravastatin Sodium (Pravachol) 20 Mg Tablet 20 MG PO HS, TAB Sitagliptin Phosphate (Januvia) 100 Mg Tablet 100 MG PO DAILY, TAB Discontinued Medications: Aspirin (Aspirin) 325 Mg Tablet 325 MG PO DAILY, TAB Metformin HCl (Glucophage) 1,000 Mg Tab 1000 MG PO BID, TAB New, Converted or Re-Newed RX: Call to Patients Pharmacy Patient Instructions Patient Instructions: DO NOT TAKE METFORMIN TODAY OR TOMORROW. RESTART METFORMIN ON FRIDAY, JANUARY 07, 2020. PLEASE SCHEDULE FOLLOW UP APPOINTMENT NEXT WEEK WITH GUS WARD Jan 05, 2020 09:29
[2020-01-05] MEDS ORDERED: KCL 20 MEQ TAB (K-DUR) PO ONE ×2 (09:33→09:45)
--- NOTE | 2020-01-05 11:20 | NUR ---
PT AND LATASHA EDUCATED ON DISCHARGE INSTRUCTIONS. PT AND STATED UNDERSTANDING. PT TAKEN TO CAR VIA WHEELCHAIR WITH BELONGINGS.
--- NOTE | 2020-01-05 12:49 | Progress Note - Cardiology ---
Cardiology SOAP Progress Note Subjective: No cp or palp or syncope or shortness of breath No groin discomfort No leg discomfort No focal weakness No n/v/d Objective: I&O/Vital Signs 01/05/20 01/05/20 01/05/20 01/05/20 01:00 01:00 02:00 03:15 Pulse 61 61 62 65 Resp 20 19 21 B/P (MAP) 133/72 (92) 133/79 (97) 141/80 (100) Pulse Ox 95 94 95 O2 Delivery Room Air Room Air Room Air 01/05/20 01/05/20 01/05/20 01/05/20 03:56 04:00 04:00 05:00 Temp 36.5 Pulse 61 63 Resp 18 25 B/P (MAP) 116/70 (85) 144/75 (98) Pulse Ox 96 96 O2 Delivery Room Air Room Air Room Air 01/05/20 01/05/20 01/05/20 01/05/20 06:00 06:38 07:00 07:20 Temp 36.4 Pulse 66 63 74 Resp 25 21 B/P (MAP) 153/76 (101) 163/113 (130) Pulse Ox 97 98 O2 Delivery Room Air Room Air 01/05/20 01/05/20 01/05/20 01/05/20 08:00 08:00 09:00 10:00 Pulse 81 75 69 Resp 28 20 32 B/P (MAP) 127/87 (100) Pulse Ox 99 95 O2 Delivery Room Air Room Air Room Air Room Air 01/05/20 11:24 Temp 36.4 Pulse 69 Resp 32 B/P (MAP) 127/87 Pulse Ox 95 O2 Delivery Room Air 01/05/20 00:00 Intake Total 300 ml Output Total 1150 ml Balance -850 ml Side: right Groin site without hematoma: Yes Condition: DP/PT pulses palpable, extremity w/d/p Bruising: mild bruising Constitutional: AAO x 3 Respiratory: No accessory muscle use, No respiratory distress; chest expansion is symmetric, chest is bilaterally symmetric Cardiovascular: regular rate-rhythm; No JVD; S1 and S2 Gastrointestional: No tender; soft, round, audible bowel sounds Extremities: no lower extremity edema bilateral Neurologic/Psychiatric: grossly intact Skin: No rash on exposed areas, No ulcerations on exposed areas Results/Procedures: Labs Laboratory Tests 01/04/20 12:52: Activated Partial Thromboplast Time 80H 01/04/20 15:09: Activated Partial Thromboplast Time 27 01/04/20 19:39: Glucometer 196H 01/05/20 02:16: White Blood Count 8.6, Red Blood Count 4.58, Hemoglobin 13.6, Hematocrit 41, Mean Corpuscular Volume 89, Mean Corpuscular Hemoglobin 30, Mean Corpuscular Hemoglobin Concent 33, Red Cell Distribution Width 14.5, Platelet Count 256, Mean Platelet Volume 10.7H, Sodium Level 141, Potassium Level 3.5L, Chloride Level 105, Carbon Dioxide Level 23, Anion Gap 13, Blood Urea Nitrogen 11, Creatinine 0.79, Estimat Glomerular Filtration Rate > 60, BUN/Creatinine Ratio 14, Glucose Level 141H, Calcium Level 9.0, Magnesium Level 2.0 01/05/20 10:03: Glucometer 226H Microbiology 01/04/20 MRSA Screen - Final, Complete MRSA not isolated Laboratory Tests 01/04/20 08:00 01/05/20 02:16 A/P: Assessment: CAD - Cardiac cath of January 04, 2020: Coronary artery disease primarily consisting of 70% to 80% proximal stenosis of a dominant right coronary, to which successful stenting was carried out with Alpine Xience 3.5 x 23 mm stent. The rest of the coronary vessels have relatively mild disease. Mild to moderate enlargement of the aortic root and aortic valve sclerosis and calcification and somewhat diminished leaflet excursion. MPI of September 28, 2019 is suggestive of an inferior infarction without ischemia. Inferior hypokinesis. LVEF 62% (subsequent cardiac cath as noted above) Echocardiogram of September 28, 2019 showed LVEF 50-55%. Aortic valve thickening consistent with sclerosis. Mild to mod stenosis. RVSP approx 29 mmHg Abnormal ECG. ECG of 09/06/19 shows NSR with RBBB and LAFB Hypertension Hyperlipidemia DM II Overweight Skin rash in Jul 2019, treated transiently with methotrexate Fam h/o premature CAD (brother had MT in his early 60s; sister had [place] in 20s or 30s) Hypokalemia Plan: S/P successful coronary intervention on 01-04-2020 Continue current medication regimen including statin, ASA, Plavix and BB I explained CV findings and interventions undertaken and further treatment plan to him and his , and answered questions Discussed activity restrictions with him and his spouse OK to discharge home today with out pt f/u next week JOHANA MCCORMICK MD FACP FAC CCDS Jan 05, 2020 12:49
== END 2020-01-05 11:24 | disposition home or self-care (01) ==
LOC: CATH 07:38 → ICU 11:46 → CATH 01-05 11:24
PROVIDERS: ATTEND Internal Medicine Cardiovascular Disease
DX: I25.10 Atherosclerotic heart disease of native coronary artery without angina pectoris (principal); I35.8 Other nonrheumatic aortic valve disorders; R07.89 Other chest pain; E66.3 Overweight; E87.6 Hypokalemia; E78.5 Hyperlipidemia, unspecified; E11.9 Type 2 diabetes mellitus without complications; Z79.84 Long term (current) use of oral hypoglycemic drugs; Z79.82 Long term (current) use of aspirin; Z79.899 Other long term (current) drug therapy; Z68.31 Body mass index [BMI] 31.0-31.9, adult; Z90.89 Acquired absence of other organs; Z82.3 Family history of stroke
CPT/HCPCS: 36415; 80048; 80053; 80061; 82962; 83735; 85027; 85347; 85610; 85730; 87081; 93005; 93454; 93567

== ENCOUNTER → 2020-01-10 | Outpatient (CLI) | payer MEDICARE, OTHER ==
[~2020-01-10] MED LIST changes: +AMLO10TA7 PO; +ASPI-808 PO; -CATHETER FLUSH 10 ML SYR IV PRN; +CETI10TA17 PO; +CLOP75TA28 PO; +GLIM4TAB5 PO; +LEVO88TA54 PO; +LISI1TAB26 PO; +LORA-714 PO; +NFMET1000 PO; +PRAV20TA PO; +SITA100T12 PO
[2020-01-10 08:48] LABS: BUN/CREATININE RATIO 20; CALCIUM 9.7 MG/DL (8.5-10.1); CARBON DIOXIDE 28 MMOL/L (21-32); CHLORIDE 96 MMOL/L (98-107); CREATININE SERUM 0.87 MG/DL (0.60-1.30); GFR ESTIMATED > 60; GLUCOSE 118 MG/DL (70-105); POTASSIUM 3.5 MMOL/L (3.6-5.0); SODIUM 137 MMOL/L (135-145)
== END ==
LOC: LAB FS 07:56
PROVIDERS: ATTEND Nurse Practitioner Family
DX: E87.6 Hypokalemia (principal)
CPT/HCPCS: 36415; 80048

== ENCOUNTER → 2021-03-21 | Outpatient (CLI) | payer MEDICARE, OTHER ==
[~2021-03-21] MED LIST changes: +AMLO-251 PO; -AMLO10TA7 PO; +LORA-53 PO; -LORA-714 PO
--- NOTE | 2021-03-21 15:43 | Diagnostic Imaging Report ---
INDICATION: Fall and left shoulder pain. TIME OF EXAM: 3:20 PM. EXAMINATION: Three views of the left shoulder. PROCEDURE: Normal glenohumeral and acromioclavicular alignment. Acromiohumeral space is normal. No fracture or dislocation is seen. IMPRESSION: No acute bony abnormality is detected. Dictated by: Dictated on workstation # [id number]
--- NOTE | 2021-03-21 15:54 | Diagnostic Imaging Report ---
INDICATION: Left shoulder pain. TIME OF EXAM: 3:18 PM. EXAMINATION: Two views of the left scapula were obtained. Scapula appears intact. The clavicle and proximal humerus appear intact. No fracture is seen. IMPRESSION: No acute bony abnormality is detected. Dictated by: Dictated on workstation # [id number]
== END ==
LOC: RAD
DX: M25.512 Pain in left shoulder (principal); W19.XXXA Unspecified fall, initial encounter
CPT/HCPCS: 73010; 73030

== ENCOUNTER → 2021-11-27 | Outpatient (CLI) | payer MEDICARE, OTHER ==
[~2021-11-27] VITALS: Ht 172 cm; Wt 96.0 kg
[~2021-11-27] MED LIST changes: +CATHETER FLUSH 10 ML SYR IVP PRN; -LISI1TAB26 PO; +LISI1TAB48 PO; +REGADENOSON 0.4 MG/5 ML SYR (LEXISCAN) IV ONE
[2021-11-27 09:06] VITALS: BP 186/98
--- NOTE | 2021-11-30 11:05 | STRESS TEST ---
DATE OF SERVICE: 11/27/2021 RESTING AND POST REGADENOSON TECHNETIUM-99M TETROFOSMIN SPECT CT IMAGING ORDERING PHYSICIAN: Dr. Cope. PRIMARY PHYSICIAN: Dr. Babb. CLINICAL DIAGNOSIS: Coronary artery disease. Baseline images were carried out after injection of 10.24 mCi of technetium-99m Tetrofosmin. This was followed by 0.4 mg Regadenoson and 29.5 mCi of technetium-99m Tetrofosmin for stress imaging. The electrocardiogram showed sinus tachycardia and right bundle branch block and left anterior fascicular block at baseline. It did not change significantly with the Regadenoson infusion. The patient reported mild shortness of breath, which resolved in a few minutes. Review of images at rest and following stress does not indicate any distinct perfusion defects consistent with significant myocardial ischemia or infarction. Gated images show normal global left ventricular systolic function with normal regional wall motion. Left ventricular ejection fraction is calculated to be 79%. CONCLUSIONS: 1. This study does not indicate significant myocardial ischemia or infarction. 2. Normal regional wall motion. 3. Normal global left ventricular systolic function with a calculated ejection fraction of 79%. Job ID: [id number] DocumentID: [id number] Dictated Date: 11/30/2021 09:57:20 Tyre Builder Date: 11/30/2021 11:05:12 Dictated By: JOHANA OCPE MD, MA, FACP, FACC, MTDD
== END ==
LOC: CARD 07:30
PROVIDERS: ATTEND Internal Medicine Cardiovascular Disease
DX: I25.10 Atherosclerotic heart disease of native coronary artery without angina pectoris (principal)
CPT/HCPCS: 78452; 93017; A9502

== ENCOUNTER → 2023-02-24 | Outpatient (CLI) | payer MEDICARE, OTHER ==
[~2023-02-24] MED LIST changes: -CATHETER FLUSH 10 ML SYR IVP PRN; +LORA-1389 PO; -LORA-53 PO; -REGADENOSON 0.4 MG/5 ML SYR (LEXISCAN) IV ONE
== END ==
LOC: CARD 10:16
PROVIDERS: ATTEND Nurse Practitioner Family
DX: I51.7 Cardiomegaly (principal); I35.0 Nonrheumatic aortic (valve) stenosis
CPT/HCPCS: 93306

== ENCOUNTER → 2023-02-25 | Outpatient (CLI) | payer MEDICARE, OTHER ==
[~2023-02-25] VITALS: Ht 172 cm; Wt 85.0 kg
[~2023-02-25] MED LIST changes: +CATHETER FLUSH 10 ML SYR IVP PRN
[2023-02-25 13:21] VITALS: BP 158/92
--- NOTE | 2023-02-26 14:18 | STRESS TEST ---
DATE OF SERVICE: 02/25/2023 RESTING AND POST EXERCISE TECHNETIUM-99M TETROFOSMIN SPECT CT IMAGING CLINICAL DIAGNOSIS: Coronary artery disease. Baseline images were carried out after injection of 10.67 mCi of technetium-99m tetrofosmin. This was followed by exercise on a treadmill. Parth protocol was employed. The electrocardiogram showed sinus rhythm with right bundle branch block at baseline. The electrocardiogram did not change significantly with exercise. The patient exercised for a total of 5 minutes and 45 seconds in the Parth protocol. [ ] to stop on account of fatigue. He attained 88% of maximum predicted heart rate. After he had attained more than 85% of maximum predicted heart rate and had indicated that he would not be able to exercise for more than another minute, 30.3 mCi of technetium-99m Tetrofosmin were injected and the exercise was continued for another minute. Review of images at rest and following stress does not indicate any significant perfusion defect consistent [ ] myocardial ischemia or infarction. Some degree of diaphragmatic attenuation seen both at rest and following exercise. Gated images show normal global left ventricular systolic function and normal regional wall motion, including the diaphragmatic wall of the left ventricle. Left ventricular ejection fraction is calculated to be 62%. Left ventricular end-diastolic volume is 74 mL. TID is absent (1.09). CONCLUSIONS: 1. No evidence of any significant myocardial ischemia or infarction. 2. Normal regional wall motion. 3. Normal global left ventricular systolic function with a calculated ejection fraction 62%. Job ID: [id number] DocumentID: [id number] Dictated Date: 02/26/2023 12:51:26 Construction Craft Laborer Date: 02/26/2023 14:16:00 Dictated By: JOHANA MCCORMICK MD; ANIA; FACP; FACC;
== END ==
LOC: CARD 10:52
PROVIDERS: ATTEND Nurse Practitioner Family
DX: I25.10 Atherosclerotic heart disease of native coronary artery without angina pectoris (principal)
CPT/HCPCS: 78452; 93017; A9502